=== PATIENT | female | born 1985 | race Caucasian/White ===

== ENCOUNTER 2016-10-02 08:15 | Emergency (ER) | payer OTHER ==
[2016-10-02 08:30] VITALS: RESP 18; O2SAT 100
[2016-10-02] MEDS ORDERED: CYCLOBENZAPRINE 10 MG TAB PO ONE (08:53)
[2016-10-02] MEDS ORDERED: KETOROLAC TROMETHAMINE 30 MG/ML SOL IM ONE (08:54)
[2016-10-02] MEDS ORDERED: APAP/HYDROCODONE 325/7.5 TAB PO PRN (08:55)
[2016-10-02] MEDS ORDERED: CYCLOBENZAPRINE 10 MG TAB ONE (08:56)
[2016-10-02] MEDS ORDERED: KETOROLAC TROMETHAMINE 30 MG/ML SOL ONE (08:56)
[2016-10-02 10:10] VITALS: BP 113/58; PULSE 84; TEMP 98.9
== END 2016-10-02 10:56 | disposition home or self-care (01) ==
LOC: ED 08:15
DX: M54.5 Low back pain (principal); M62.830 Muscle spasm of back
CPT/HCPCS: 99283 ×3; 84703; J1885; 72120; 96372; 99284

== ENCOUNTER 2016-12-08 11:17 | Emergency (ER) | payer OTHER ==
[2016-12-08 11:46] VITALS: RESP 18; TEMP 98
[2016-12-08] MEDS ORDERED: KETOROLAC TROMETHAMINE 30 MG/ML SOL IM ONE (11:51)
[2016-12-08] MEDS ORDERED: KETOROLAC TROMETHAMINE 30 MG/ML SOL ONE (11:51)
[2016-12-08] MEDS ORDERED: DIAZEPAM 5MG/ML SOL IM ONE (12:35)
[2016-12-08] MEDS ORDERED: DIAZEPAM 5MG/ML SOL ONE (12:45)
[2016-12-08 13:10] VITALS: BP 110/64; PULSE 74; O2SAT 96
== END 2016-12-08 13:06 | disposition home or self-care (01) ==
LOC: ED 11:17
DX: M51.17 Intervertebral disc disorders with radiculopathy, lumbosacral region (principal)
CPT/HCPCS: 99283 ×2; J1885; J3360; 96372

== ENCOUNTER 2017-02-07 10:29 | Emergency (ER) | payer OTHER ==
[2017-02-07 10:48] VITALS: RESP 18; O2SAT 99
[2017-02-07 11:20] LABS: BASOPHILS % (AUTO) 1 % (0-3); EOSINOPHILS % (AUTO) 2 % (0-9); HEMATOCRIT 36 % (35-47); MEAN CORPUSCULAR HGB CONC 35.4 gm/dl (32.0-36.0); MEAN CORPUSCULAR VOLUME 84 fL (81-99); MONOCYTES % (AUTO) 8.2 % (0-12); NEUTROPHILS % (AUTO) 67.6 % (37-80)
[2017-02-07 12:18] VITALS: BP 144/86; PULSE 92; TEMP 98
== END 2017-02-07 12:15 | disposition home or self-care (01) ==
LOC: ED 10:29
DX: O20.0 Threatened abortion (principal); Z3A.10 10 weeks gestation of pregnancy
CPT/HCPCS: 36415; 85025; 99282